=== PATIENT | female | born 1990 ===

== ENCOUNTER 2024-02-11 18:06 | Emergency (ER) | payer SELFPAY ==
[2024-02-11] MEDS: Diphtheria,Pertussis(Acell),Tetanus Vaccine 0.5 ML Syringe IM ONE (18:22)
[2024-02-11] MEDS: Lidocaine 1% 30 ML SDV INJECT ONE (18:27)
[2024-02-11] MEDS: Doxycycline Monohydrate 100 MG Cap PO ONE (18:40)
== END 2024-02-11 19:06 | disposition home or self-care (01) ==
LOC: DL.ED 18:06
DX: S61.041A Puncture wound with foreign body of right thumb without damage to nail, initial encounter (principal); Z23 Encounter for immunization; W22.8XXA Striking against or struck by other objects, initial encounter
CPT/HCPCS: 10120; 90471; 90715; 99283-25; A9270-GY; J3490